=== PATIENT | female | born 1990 | race Caucasian/White ===

== ENCOUNTER 2017-11-22 14:48 | Observation (INO) ==
[2017-11-22 15:43] LABS: Basophils # 0.1 K/mcL (0.0-0.2); Basophils % 0.4 %; Eosinophils # 0.2 K/mcL (0.0-0.6); Eosinophils % 1.3 %; Hematocrit 36.1 % (35.3-44.9); Hemoglobin 12.3 g/dL (11.5-15.4); Immature Granulocytes % 0.4 % (0-4); Lymphocytes # 4.1 K/mcL (0.6-4.6); Lymphocytes % 29.2 %; Mean Corpuscular HGB Conc 34.1 g/dL (31.6-35.5); Mean Corpuscular Hemoglobin 29.9 pg (28.0-33.3); Mean Corpuscular Volume 87.6 fL (83.0-100.0); Mean Platelet Volume 9.5 fL (9.4-12.4); Monocytes # 0.6 K/mcL (0.0-1.3); Monocytes % 4.5 %; Neutrophils # 9.1 K/mcL (1.6-8.9); Platelet Count 408 K/mcL (140-400); Red Blood Count 4.12 M/mcL (3.82-4.97); Red Cell Distribution Width 12.9 % (11.5-14.5); Segmented Neutrophils % 64.2 %
[2017-11-22 15:53] LABS: Bilirubin,Urine Negative (Negative); Blood,Urine Negative (Negative); Clarity,Urine Cloudy (Clear); Color,Urine Yellow (Yellow); Glucose,Urine (UA) Normal (Normal); Ketones,Urine Negative (Negative); Leukocyte Esterase,Urine Negative (Negative); Nitrite,Urine Negative (Negative); PH,Urine 6.5 pH Units (5.0-8.0); Protein,Urine Negative (Neg-Trace); Specific Gravity,Urine 1.016 (1.010-1.025); Urobilinogen,Urine Normal (Normal)
[2017-11-22 15:56] LABS: Bacteria,Urine None Seen per hpf (None-Few); Hyaline Casts,Urine None Seen per lpf (None-Few); Squamous Epithelial Cell,Urine Many per lpf (None-Few); WBC,Urine 0-3 per hpf (0-3)
[2017-11-22] MEDS ORDERED: *HR* Morphine Immed Rel 30 MG TABLET PO ONE (19:33)
[2017-11-22] MEDS ORDERED: *HR* HYDROmorphone (PF) 1 MG/ML SYRINGE IVP PRN (21:06)
[2017-11-22] MEDS ORDERED: Ondansetron 4 MG/2 ML VIAL IVP PRN (21:06)
[2017-11-22] MEDS ORDERED: Naloxone 0.4 MG/ML INJ IVP PRN (21:06)
--- NOTE | 2017-11-22 21:26 | OB/GYN History & Physical ---
Date of Encounter: 11/22/17 Time of Encounter: 21:24 Assessment and Plan (1) of unknown anatomic location Current visit: Yes Status: Acute Discussion with patient regarding ultrasound findings and possibility of ectopic , spontaneous miscarriage (now bleeding), and early IUP. I have recommended observation with repeat labs in the morning and reevaluation of her pain prior to proceeding with medical or surgical management if it is deemed to be an ectopic . Patient is agreeable to repeat labs in te AM and is very interested in medical management if it is an ectopic. All questions answered for the patient and her family present. (2) LLQ pain Current visit: Yes Status: Acute History of Present Illness Chief complaint: LLQ pain in HPI: Ms. Shaw is a 26 year old female G 3 P 2-0-0-2 with LMP 10/18/2017 came to the ER after noticing a left lower quadrant discomfort. She states the pain began yesterday and became progressively worse at 10 am today. She states she started to bleed since her ultrasound and her pain is now improving. She states this is her third and everything feels very different. She is self pay and does not want any testing or treatment that is not absolutely necessary. Past Med Surg Social Fam HX - Past Medical History Source: patient Medical history: no medical history Psychiatric history: no psych history - Past Surgical History Surgical History: - Social History Smoking Status: Current every day smoker (3 cigarettes/day) Smokeless Tobacco Status: No Alcohol use: none Drug use: none Current living situation: Home - Independent Obstetrical History - Pregnancies : 3 Para: 2 Term: 2 : 0 Ab's: 0 Livin - History/Complications History/Complications: denies Medications and Allergies 3 Allergy/AdvReac Type Severity Reaction Status Date / Time No Known Allergies Allergy Verified 11/22/17 16:04 Review of System OB All systems PM: reviewed and no additional remarkable complaints except as stated - Constitutional Constitutional ROS IM: no anorexia, no chills, no fatigue, no fever(s) - Gastrointestinal Gastrointestinal: abdominal pain, no change in bowel habits, no constipation, no nausea, no vomiting - Genitourinary Genitourinary: abnormal vaginal bleeding, no vaginal dryness, no vaginal odor Exam - Vital Signs Vital signs: Initial Vital Signs Temp Pulse Resp BP Pulse Ox 98.6 F 87 18 100/69 98 11/22/17 14:50 11/22/17 14:50 11/22/17 14:50 11/22/17 14:50 11/22/17 14:50 - Constitutional Constitutional: well developed, well nourished, no acute distress, average body habitus - HEENT HEENT: EOMI - Lungs Respiratory exam: CTAB - Cardiovascular Cardiovascular exam: RRR - Abdomen Abdomen: Present: bowel sounds normal. Absent: guarding noted, mass Abdomen detail: left lower quadrant: tenderness (mild, without gurarding or rebound) - Extremities Extremities exam: warm Results Result Diagrams: 11/22/17 15:35 Abnormal lab results WBC 14.2 K/mcL (4.3-11.1) H 11/22/17 15:35 Plt Count 408 K/mcL (140-400) H 11/22/17 15:35 Neutrophils # 9.1 K/mcL (1.6-8.9) H 11/22/17 15:35 Beta HCG, Quant 3128 mIU/mL (Less than 5) H 11/22/17 15:35 Urine Clarity Cloudy (Clear) A 11/22/17 15:29 Urine Microscopic RBC 3-5 per hpf (0-3) H 11/22/17 15:29 Ur Squamous Epith Cells Many per lpf (None-Few) H 11/22/17 15:29 All other labs normal. US - abdomen: report reviewed (Images reviewed. Left adnexal cysts are without doppler flow and not convincing for ectopic . Possibly corpus luteum), image reviewed - VTE Reasons for not Prescribing Prophylaxis: Treatment not Indicated - Low risk for VTE
--- NOTE | 2017-11-22 22:08 | Emergency Department Note ---
Disposition Clinical Impression: Ectopic Qualifiers: Location of ectopic : tubal Intrauterine status: unspecified Laterality: unspecified laterality Qualified Code(s): O00.109 - Unspecified tubal without intrauterine Disposition: Admitted As Inpatient Condition: Good General Adult HPI - General Chief complaint: ED Abdominal Pain Stated complaint: Possible miscarriage 3Wks preg Time Seen by Provider: 11/22/17 15:13 Source: patient Limitations: no limitations Nursing Notes Reviewed: Yes Vital Signs Reviewed: Yes - History of Present Illness HPI Narrative: This is a 26-year-old female who was suspected to be 6 weeks presenting with acute onset of abdominal pain 4 hours ago. She called her friend who is a local marketing communications assistant who thought that potentially she had an ectopic and recommended that she come to the emergency department. Ultrasound was performed on arrival which showed possible ectopic . Her Quant was 3000. Type and screen as well as CBC were sent. Urinalysis was obtained. It was concerning that her pain was significant from any pain that she is experienced in the past. Ultimately OB was consult. They did recommend proceeding with admission for serial examinations, possibly repeat imaging, possible repeat laboratory analyses. The patient did express interest and medical management of possible ectopic however I did defer further actions to [facility] as they are the experts and management of possible ectopic . I do feel admission would be most appropriate at this point given the risk of rupture with ectopic . Her vital signs are stable time admission. Her pain was controlled. General: No acute distress HEENT: Pupils equal and reactive to light, extraoccular muscle movement is normal, TMS are clear bilaterally. Heart: RRR, No murmor rub or gallop Lungs: lungs clear, no wheezing, rales or ronchi. ABD: General tenderness without peritonitis Extremities: No cyanosis, clubbing or edema Neuro: CN 2-12 in tact, no focal deficit. strength 5/5. Pain Scale: 4 - Related Data Allergies Allergy/AdvReac Type Severity Reaction Status Date / Time No Known Allergies Allergy Verified 11/22/17 16:04 All systems ED: reviewed and negative except as stated. Review of Systems: As Per HPI Past Medical History - Past Medical History Medical history: Reports: no medical history Surgical history: Reports: Psychiatric history: Reports: no psych history - Social History Smoking Status: Current every day smoker (3 cigarettes/day) Smokeless Tobacco Status: No Alcohol use: Reports: none Drug use: Reports: none Physical Exam - General Limitations: no limitations General appearance: alert, in no apparent distress Course Vital Signs Temperature 98.6 F 11/22/17 14:50 Pulse Rate 87 11/22/17 14:50 Respiratory Rate 18 11/22/17 14:50 Blood Pressure 100/69 11/22/17 14:50 O2 Sat by Pulse Oximetry 98 11/22/17 14:50 Temperature 98 F 11/22/17 21:10 Pulse Rate 78 11/22/17 21:10 Respiratory Rate 20 11/22/17 21:10 Blood Pressure 105/70 11/22/17 21:10 O2 Sat by Pulse Oximetry 100 11/22/17 21:10 Oxygen Delivery Oxygen Delivery Room Air Medical Decision Making - Lab Data Result diagrams: 11/22/17 15:35 Lab Results 11/22/17 11/22/17 11/22/17 Range/Units 15:29 15:35 15:35 WBC 14.2 H (4.3-11.1) K/mcL RBC 4.12 (3.82-4.97) M/mcL Hgb 12.3 (11.5-15.4) g/dL Hct 36.1 (35.3-44.9) % MCV 87.6 (83.0-100.0) fL MCH 29.9 (28.0-33.3) pg MCHC 34.1 (31.6-35.5) g/dL RDW 12.9 (11.5-14.5) % Plt Count 408 H (140-400) K/mcL MPV 9.5 (9.4-12.4) fL Immature Gran % 0.4 (0-4) % Seg Neutrophils % 64.2 % Lymphocytes % 29.2 % Monocytes % 4.5 % Eosinophils % 1.3 % Basophils % 0.4 % Neutrophils # 9.1 H (1.6-8.9) K/mcL Lymphocytes # 4.1 (0.6-4.6) K/mcL Monocytes # 0.6 (0.0-1.3) K/mcL Eosinophils # 0.2 (0.0-0.6) K/mcL Basophils # 0.1 (0.0-0.2) K/mcL Beta HCG, Quant 3128 H (Less than 5) mIU/mL Urine Color Yellow (Yellow) Urine Clarity Cloudy A (Clear) Urine pH 6.5 (5.0-8.0) pH Units Ur Specific [place] 1.016 (1.010-1.025) Urine Protein Negative (Neg-Trace) mg/dL Urine Glucose (UA) Normal (Normal) mg/dL Urine Ketones Negative (Negative) mg/dL Urine Blood Negative (Negative) Urine Nitrite Negative (Negative) Urine Bilirubin Negative (Negative) Urine Urobilinogen Normal (Normal) mg/dL Ur Leukocyte Esterase Negative (Negative) Urine Microscopic RBC 3-5 H (0-3) per hpf Urine Microscopic WBC 0-3 (0-3) per hpf Ur Squamous Epith Cells Many H (None-Few) per lpf Urine Bacteria None Seen (None-Few) per hpf Hyaline Casts None Seen (None-Few) per lpf Ur Culture Indicated? NO (NO) Blood Type Antibody Screen 11/22/17 Range/Units 15:35 WBC (4.3-11.1) K/mcL RBC (3.82-4.97) M/mcL Hgb (11.5-15.4) g/dL Hct (35.3-44.9) % MCV (83.0-100.0) fL MCH (28.0-33.3) pg MCHC (31.6-35.5) g/dL RDW (11.5-14.5) % Plt Count (140-400) K/mcL MPV (9.4-12.4) fL Immature Gran % (0-4) % Seg Neutrophils % % Lymphocytes % % Monocytes % % Eosinophils % % Basophils % % Neutrophils # (1.6-8.9) K/mcL Lymphocytes # (0.6-4.6) K/mcL Monocytes # (0.0-1.3) K/mcL Eosinophils # (0.0-0.6) K/mcL Basophils # (0.0-0.2) K/mcL Beta HCG, Quant (Less than 5) mIU/mL Urine Color (Yellow) Urine Clarity (Clear) Urine pH (5.0-8.0) pH Units Ur Specific [place] (1.010-1.025) Urine Protein (Neg-Trace) mg/dL Urine Glucose (UA) (Normal) mg/dL Urine Ketones (Negative) mg/dL Urine Blood (Negative) Urine Nitrite (Negative) Urine Bilirubin (Negative) Urine Urobilinogen (Normal) mg/dL Ur Leukocyte Esterase (Negative) Urine Microscopic RBC (0-3) per hpf Urine Microscopic WBC (0-3) per hpf Ur Squamous Epith Cells (None-Few) per lpf Urine Bacteria (None-Few) per hpf Hyaline Casts (None-Few) per lpf Ur Culture Indicated? (NO) Blood Type A POSITIVE Antibody Screen NEGATIVE
[2017-11-22] MEDS: Ringers Solution, Lactated 1,000 ML IVC SCH (22:54)
[2017-11-23 05:01] LABS: Alanine Aminotransferase 7 Units/L (7-52); Albumin 3.5 g/dL (3.5-5.7); Albumin/Globulin Ratio 1.5 (1.1-2.2); Alkaline Phosphatase 35 Units/L (34-104); Aspartate Amino Transferase 12 Units/L (13-39); BUN/Creatinine Ratio 14 (6-26); Bilirubin,Total 0.2 mg/dL (0.3-1.0); Blood Urea Nitrogen 8 mg/dL (6-20); Calcium 8.6 mg/dL (8.6-10.3); Carbon Dioxide 24 mEq/L (23-29); Chloride 113 mEq/L (98-107); Globulin 2.3 g/dL (2.4-3.5); Glucose 114 mg/dL (70-105); Osmolality,Calculated 289 (280-300); Potassium 3.8 mEq/L (3.5-5.1); Sodium 140 mEq/L (136-145); Total Protein 5.8 g/dL (6.4-8.9); eGFR For African Americans > 60 (> 60); eGFR For Non-African Americans > 60 (> 60)
[2017-11-23] MEDS: Ringers Solution, Lactated 1,000 ML IVC SCH (09:15)
--- NOTE | 2017-11-23 09:37 | OB/GYN Progress Note ---
Date of Encounter: 11/23/17 Time of Encounter: 09:30 - Assessment and Plan (1) Ectopic Current Visit: Yes Status: Acute Because of worsening pain and been symptomatic patient be scheduled for a laparoscopy salpingostomy possible salpingectomy possible salpingo-oophorectomy on the left side Qualifiers: Location of ectopic : tubal Intrauterine status: unspecified Laterality: left Qualified Code(s): O00.102 - Left tubal without intrauterine (2) LLQ pain Current Visit: Yes Status: Acute Subjective - Subjective Interval history: Patient states she started have pain in the left lower quadrant and she is complaining of some lightheadedness and dizziness. Patient states she had pain when she was in emergency room that resolved been approximately 5:00 started getting more uncomfortable again. Her quantitative hCG has dropped from 3000 down to 1600 but I am concerned about the ultrasound showing a complex mass in the left adnexa and what appears to be complex fluid suggestive of blood. Because she is having worsening pain and she is feeling symptomatic have recommended laparoscopy. Objective - Vital Signs Latest vital signs: Vital Signs Temp Pulse Resp BP Pulse Ox 11/23/17 07:30 98.1 F 68 16 86/52 11/23/17 04:25 98.6 F 74 14 87/52 100 11/23/17 00:45 98.3 F 76 14 104/55 98 11/22/17 21:10 98 F 78 20 105/70 100 11/22/17 20:28 14 115/74 Intake and Output 11/22/17 11/23/17 11/23/17 23:59 07:59 15:59 Other: Weight 70.7 kg 71.9 kg Patient Weight 11/23/17 23:59 Weight 71.9 kg - I&O's I&O's: Intake & Output 11/20/17 11/21/17 11/22/17 11/23/17 23:59 23:59 23:59 23:59 Weight 70.7 kg 71.9 kg - Exam Lungs: bilateral: normal Chest: Normal S1, Normal S2 Extremities: Present: normal Abdomen: Present: normal appearance, tenderness (Left lower quadrant) - Labs Labs: Abnormal lab results WBC 14.2 K/mcL (4.3-11.1) H 11/22/17 15:35 Plt Count 408 K/mcL (140-400) H 11/22/17 15:35 Neutrophils # 9.1 K/mcL (1.6-8.9) H 11/22/17 15:35 Chloride 113 mEq/L (98-107) H 11/23/17 04:26 Creatinine 0.57 mg/dL (0.60-1.20) L 11/23/17 04:26 Glucose 114 mg/dL (70-105) H 11/23/17 04:26 Total Bilirubin 0.2 mg/dL (0.3-1.0) L 11/23/17 04:26 AST 12 Units/L (13-39) L 11/23/17 04:26 Serum Total Protein 5.8 g/dL (6.4-8.9) L 11/23/17 04:26 Globulin 2.3 g/dL (2.4-3.5) L 11/23/17 04:26 Beta HCG, Quant 1637 mIU/mL (Less than 5) H 11/23/17 04:26 Urine Clarity Cloudy (Clear) A 11/22/17 15:29 Urine Microscopic RBC 3-5 per hpf (0-3) H 11/22/17 15:29 Ur Squamous Epith Cells Many per lpf (None-Few) H 11/22/17 15:29 Consult Discharge Plan - Plan Referrals: NONE,PCP [Primary Care Provider] -
[2017-11-23 10:09] LABS: Hematocrit 33.9 % (35.3-44.9); Hemoglobin 11.4 g/dL (11.5-15.4); Immature Granulocytes % 0.1 % (0-4); Mean Corpuscular HGB Conc 33.6 g/dL (31.6-35.5); Mean Corpuscular Hemoglobin 29.4 pg (28.0-33.3); Mean Corpuscular Volume 87.4 fL (83.0-100.0); Mean Platelet Volume 9.7 fL (9.4-12.4); Neutrophils # 4.3 K/mcL (1.6-8.9); Platelet Count 347 K/mcL (140-400); Red Blood Count 3.88 M/mcL (3.82-4.97); Red Cell Distribution Width 13.1 % (11.5-14.5); Segmented Neutrophils % 47.7 %
[2017-11-23 10:10] LABS: Basophils % 0.4 %; Eosinophils # 0.2 K/mcL (0.0-0.6); Eosinophils % 2.1 %; Lymphocytes # 3.9 K/mcL (0.6-4.6); Lymphocytes % 43.1 %; Monocytes # 0.6 K/mcL (0.0-1.3); Monocytes % 6.6 %
[2017-11-23] MEDS ORDERED: *HR* Midazolam HCl 2 MG/2 ML VIAL ONE (12:05)
[2017-11-23] MEDS ORDERED: *HR* FentaNYL (PF) 100 MCG/2 ML VIAL ONE (12:05)
[2017-11-23] MEDS ORDERED: *HR* Succinylcholine 200 MG/10 ML VIAL IVP ONE (12:06)
[2017-11-23] MEDS ORDERED: Scopolamine Patch 1.5 MG PATCH.TD72 ONE (12:53)
[2017-11-23] MEDS ORDERED: *HR* HYDROmorphone (PF) 1 MG/ML SYRINGE IVP PRN (12:59)
[2017-11-23] MEDS ORDERED: *HR* Promethazine 25 MG/ML VIAL IVP PRN (12:59)
--- NOTE | 2017-11-23 12:59 | Anesthesia Evaluation PreOp ---
Date of Encounter: 11/23/17 Time of Encounter: 12:57 - Past History Planned Operation: resection ectopic Cardiac History: Denies any Significant Hx Pulmonary History: Smoker (occassional) [employer] History: Denies Any Significant HX Other Medical History: Denies Any Significant HX Anesthesia History: No Prior Anesthetic Complications (none with spinal; mother gets nauseated with general), Past Anesthesia (C-S under spinal) Alcohol Use: none Drug use: none Medications and Allergies 3 Allergy/AdvReac Type Severity Reaction Status Date / Time No Known Allergies Allergy Verified 11/22/17 16:04 - Meds/Allergy Pre-op Review Medications Reviewed: Yes Allergies Reviewed: Yes Beta Blockers on Current Med List: No Anesthesia Results - Labs 11/23/17 08:51 11/23/17 04:26 Anesthesia Exam Last Vital Signs Temp 98.3 F 11/23/17 12:10 Pulse 64 11/23/17 12:10 Resp 16 11/23/17 12:10 BP 93/60 11/23/17 12:10 Pulse Ox 100 11/23/17 12:10 Weight: 72 kg NPO (# of Hours): > 8 hrs - HEENT Pupil (Motor): Pupils equal, EOMI Mallampati: II Teeth: Normal, Prosthesis (permanent retainer) Oral Opening: Greater than 3 - [employer] LOC: Oriented [employer] Motor: Normal RUE, Normal LUE, Normal RLE, Normal LLE, Normal Face - Cardiac Rhythm: Regular Murmur: None - Pulmonary Breath Sounds: bilateral Clear Respiratory Effort: Symmetrical Anesthesia Assess/Plan ASA Score: 2 Modified Joshua Scale for Level of Consciousness: Cooperative, oriented, and tranquil Anesthetic Plan: General Monitoring Plan: Standard Monitors Recovery Plan: PACU
[2017-11-23] MEDS ORDERED: Bupivacaine-MPF 0.25% 10 ML VIAL ONE (13:05)
[2017-11-23] MEDS ORDERED: Dexamethasone 4 MG/ML VIAL ONE (13:26)
[2017-11-23] MEDS ORDERED: Ondansetron 4 MG/2 ML VIAL ONE (13:26)
[2017-11-23] MEDS ORDERED: *HR* Rocuronium Bromide 50 MG/5 ML VIAL ONE (13:26)
[2017-11-23] MEDS ORDERED: Neostigmine Methylsulfate 3 MG/3 ML SYRINGE ONE (13:39)
[2017-11-23] MEDS ORDERED: Ketorolac 30 MG/ML VIAL ONE (13:39)
--- NOTE | 2017-11-23 14:07 | Operative Note ---
Date of procedure: 11/23/17 Pre-op diagnosis: ruptured left ectopic Post-op diagnosis: same Procedure: Laparoscopic left salpingectomy Complications: none Anesthesia: ALYSHAA Surgeon: Heath Herzog Estimated blood loss (cc): 50 Specimen: left fellopian tube with ectopic Condition: stable Disposition: PACU Procedure in Detail: Patient is a 26-year-old female who presented to the emergency room complaining of lower quadrant pain. She had an ultrasound which showed what appeared to be a complex mass in the left adnexa but a quantitative hCG was only 3000. The patient was having pain when she got to the emergency room but ultrasound was not definitive of an ectopic and is aside we will go ahead and watch the patient overnight and repeat a quantitative hCG in the morning. When patient arrived to the floor her pain had resolved she was feeling better. Her quantitative hCG had dropped to 1600 this morning the patient was stating that she was beginning to develop left lower quadrant pain again and she was feeling symptomatic she stated she was feeling lightheaded and dizzy especially when she sat up. Because ultrasound did show what looked like some complex fluid around the adnexa suggestive of blood I recommended a laparoscopy. Procedure: Patient was taken to the operating room where general anesthesia was found to be adequate. She was placed in the dorsal lithotomy position prepped and draped in usual fashion. Timeout was obtained. A weighted speculum was placed in the vagina the anterior lip of the cervix was grasped with a single- tooth tenaculum and a uterine manipulator was inserted. Speculum was removed attention was then turned to the abdomen. A small infraumbilical incision was made with a scalpel and a 5 mm blunt trocar was inserted under direct visualization. It was noted as we entered the abdominal cavity there was blood in the abdomen. A pneumoperitoneum was obtained with 4 L of CO2 gas. There is no adhesions to the abdominal wall a second incision was made in the left flank and a 5 mm blunt trocar was inserted under direct visualization and a third incision was made suprapubically and a 12 mm incision and trocar was inserted. The pelvis was visualized she was noted to have blood in the posterior cul-de- sac and she did have what appeared to be an ectopic of the left fallopian tube. It appeared to involve the entire tube and it look like she is bleeding from the fimbriated end. It did not appear that a salpingostomy would benefit her was to set this time a salpingectomy would be needed. Using the LigaSure the fallopian tube was then transected off the ovary to the mesosalpinx then at the uterine side using the LigaSure. The specimen was then placed into an Endopouch and brought out through the suprapubic incision. The pelvis was copiously irrigated no active bleeding was noted. It was at this point we terminate the procedure both ovaries were normal the right fallopian tube was also normal. The laparoscope was removed and pneumoperitoneum released call by the removal of the trochars. The skin incisions were closed using a 4-0 Vicryl in subcuticular manner and a deep stitch on the fascia suprapubically was also placed. Instruments were removed from the vagina and the patient was taken to recovery room in stable condition. Patient did receive preoperative antibiotics.
--- NOTE | 2017-11-23 14:42 | Discharge Summary ---
Date of Encounter: 11/23/17 Time of Encounter: 15:40 - Discharge Diagnosis (1) Ectopic Priority: Secondary Status: Acute Qualifiers: Location of ectopic : tubal Intrauterine status: unspecified Laterality: left Qualified Code(s): O00.102 - Left tubal without intrauterine (2) LLQ pain Priority: Secondary Status: Acute (3) Hx of unilateral salpingectomy Priority: Primary Status: Acute - Discharge Medications Prescriptions: HYDROcodone/Acet 5/325 mg [[place] 5-325 mg] 1 tab PO Q6H #28 tablet Home Medications: HYDROcodone/Acet 5/325 mg [[place] 5-325 mg] 1 tab PO Q6H #28 tablet 11/23/17 [Rx] Allergies/Adverse Reactions: 3 Allergy/AdvReac Type Severity Reaction Status Date / Time No Known Allergies Allergy Verified 11/22/17 16:04 Data Procedures and tests throughout hospitalization: Laboratory Tests 11/23/17 11/23/17 11/23/17 04:26 08:51 08:51 WBC 9.1 RBC 3.88 Hgb 11.4 L Hct 33.9 L MCV 87.4 MCH 29.4 MCHC 33.6 RDW 13.1 Plt Count 347 MPV 9.7 Immature Gran % 0.1 Seg Neutrophils % 47.7 Lymphocytes % 43.1 Monocytes % 6.6 Eosinophils % 2.1 Basophils % 0.4 Neutrophils # 4.3 Lymphocytes # 3.9 Monocytes # 0.6 Eosinophils # 0.2 Basophils # 0.0 Sodium 140 Potassium 3.8 Chloride 113 H Carbon Dioxide 24 BUN 8 Creatinine 0.57 L Est GFR ( Amer) > 60 Est GFR (Non-Af Amer) > 60 BUN/Creatinine Ratio 14 Glucose 114 H Calculated Osmolality 289 Calcium 8.6 Total Bilirubin 0.2 L AST 12 L ALT 7 Alkaline Phosphatase 35 Serum Total Protein 5.8 L Albumin 3.5 Globulin 2.3 L Albumin/Globulin Ratio 1.5 Beta HCG, Quant 1637 H Blood Type A POSITIVE Antibody Screen NEGATIVE Labs on day of discharge: Labs from last 24 hours 11/23/17 11/23/17 11/23/17 08:51 08:51 04:26 WBC 9.1 RBC 3.88 Hgb 11.4 L Hct 33.9 L MCV 87.4 MCH 29.4 MCHC 33.6 RDW 13.1 Plt Count 347 MPV 9.7 Immature Gran % 0.1 Seg Neutrophils % 47.7 Lymphocytes % 43.1 Monocytes % 6.6 Eosinophils % 2.1 Basophils % 0.4 Neutrophils # 4.3 Lymphocytes # 3.9 Monocytes # 0.6 Eosinophils # 0.2 Basophils # 0.0 Sodium 140 Potassium 3.8 Chloride 113 H Carbon Dioxide 24 BUN 8 Creatinine 0.57 L Est GFR ( Amer) > 60 Est GFR (Non-Af Amer) > 60 BUN/Creatinine Ratio 14 Glucose 114 H Calculated Osmolality 289 Calcium 8.6 Total Bilirubin 0.2 L AST 12 L ALT 7 Alkaline Phosphatase 35 Serum Total Protein 5.8 L Albumin 3.5 Globulin 2.3 L Albumin/Globulin Ratio 1.5 Beta HCG, Quant 1637 H Blood Type A POSITIVE Antibody Screen NEGATIVE Date of admission: 11/22/17 19:59 Primary care physician: PCP JAKE Discharging clinician: Heath Herzog Anticipated date of discharge: 11/23/17 - Patient Status Disposition: Home, Self-Care Condition: Good Functional capacity at discharge: independent ambulation Overall status at discharge: patient is progressing back to baseline - Discharge Instructions Follow Up With: NONE,PCP [Primary Care Provider] - Heath Herzog DO [Partnered Physician] - Forms: ED Satisfaction Letter, Work/School Release - Diet and Activity Activity: increase activity as tolerated Diet: advance to your usual diet 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 She was noted be with a quantitative hCG of 3000 ultrasound showed a possible ectopic with free fluid the patient's ultrasound was not definitive for this. Patient was not in a lot of distress and was admitted overnight to repeat a quantitative hCG in the morning. Her quantitative hCG had dropped down to 1600. Patient's pain had disappeared but it started to come back and she started becoming symptomatic. It was recommended we take to the operating room for laparoscopy. She did undergo a diagnostic laparoscopy with was noted she did have blood in the pelvis and what appeared to be an ectopic on the left side. We performed a left salpingectomy without any complications. Patient did well she recovered and wanted to go home she was discharged home with a prescription for Vicodin 5 mg # 28 one every 6 hours as needed for pain she will follow-up in the office in 2-3 weeks. Patient's condition at the time of discharge was stable. Time Attestation: Total time spent providing and/or coordinating discharge services: Exam - Constitutional Vitals: Temp Pulse Resp BP Pulse Ox 97.7 F 64 16 94/59 98 11/23/17 14:33 11/23/17 14:33 11/23/17 14:33 11/23/17 14:33 11/23/17 14:33 General appearance IM: mild distress, A&O X 3 - Respiratory Respiratory exam: Present: CTAB - Cardiovascular Cardiovascular exam IM: Present: RRR - GI/Abdominal GI/Abdominal exam IM: normal bowel sounds Incision: normal, dry, intact - VTE Reasons for not Prescribing Prophylaxis: Treatment not Indicated - Low risk for VTE
[2017-11-23] MEDS ORDERED: Ondansetron 4 MG/2 ML VIAL IVP PRN (14:54)
[2017-11-23] MEDS ORDERED: *HR* HYDROcodone/Acet 10/325 mg TABLET PO PRN (14:54)
[2017-11-23] MEDS ORDERED: Ringers Solution, Lactated 1,000 ML IVC SCH (14:54)
[2017-11-23] MEDS ORDERED: *HR* HYDROcodone/Acet 5/325 mg TABLET PO PRN (14:54)
== END 2017-11-23 18:00 | disposition home or self-care (01) ==
LOC: EMEROO 14:48 → 1NENUOBS 14:48
PROVIDERS: ADMIT Obstetrics & Gynecology; ATTEND Obstetrics & Gynecology

== ENCOUNTER 2019-12-05 17:54 | Observation (INO) ==
[2019-12-05] MEDS ORDERED: 0.9 % Sodium Chloride 1,000 ML IVC ONE (18:27)
[2019-12-05 19:46] LABS: Bilirubin,Urine Negative (Negative); Blood,Urine Negative (Negative); Clarity,Urine Clear (Clear); Color,Urine Yellow (Yellow); Glucose,Urine (UA) Normal (Normal); Ketones,Urine Negative (Negative); Leukocyte Esterase,Urine Small (Negative); Nitrite,Urine Negative (Negative); Protein,Urine Negative (Neg-Trace); Specific Gravity,Urine 1.013 (1.010-1.025); Urobilinogen,Urine Normal (Normal)
[2019-12-05 19:47] LABS: Bacteria,Urine None Seen per hpf (None-Few); Hyaline Casts,Urine None Seen per lpf (None-Few); RBC,Urine 0-3 per hpf (0-3); Squamous Epithelial Cell,Urine Many per lpf (None-Few)
[2019-12-05 19:54] LABS: Basophils % 0.2 %; Eosinophils # 0.1 K/mcL (0.0-0.6); Eosinophils % 0.9 %; Hematocrit 38.8 % (35.3-44.9); Hemoglobin 12.8 g/dL (11.5-15.4); Immature Granulocytes % 0.3 % (0-4); Lymphocytes # 3.5 K/mcL (0.6-4.6); Lymphocytes % 27.6 %; Mean Corpuscular Hemoglobin 29.4 pg (28.0-33.3); Mean Platelet Volume 9.5 fL (9.4-12.4); Monocytes # 0.7 K/mcL (0.0-1.3); Monocytes % 5.2 %; Neutrophils # 8.3 K/mcL (1.6-8.9); Platelet Count 406 K/mcL (140-400); Red Blood Count 4.36 M/mcL (3.82-4.97); Red Cell Distribution Width 11.8 % (11.5-14.5); Segmented Neutrophils % 65.8 %; White Blood Count 12.6 K/mcL (4.3-11.1)
[2019-12-05 20:16] LABS: Alanine Aminotransferase 6 Units/L (7-52); Albumin 4.1 g/dL (3.5-5.7); Albumin/Globulin Ratio 1.4 (1.1-2.2); Alkaline Phosphatase 41 Units/L (34-104); Aspartate Amino Transferase 13 Units/L (13-39); BUN/Creatinine Ratio 24 (6-26); Bilirubin,Total 0.2 mg/dL (0.3-1.0); Blood Urea Nitrogen 11 mg/dL (6-20); Calcium 9.2 mg/dL (8.6-10.3); Carbon Dioxide 19 mEq/L (23-29); Chloride 108 mEq/L (98-107); Globulin 2.9 g/dL (2.4-3.5); Glucose 102 mg/dL (70-105); Lipase 12 Units/L (11-82); Osmolality,Calculated 288 (280-300); Potassium 3.9 mEq/L (3.5-5.1); Sodium 139 mEq/L (136-145); eGFR For African Americans > 60 (> 60); eGFR For Non-African Americans > 60 (> 60)
[2019-12-05] MEDS ORDERED: Hydrocortisone Sodium Succ 100 MG/2 ML VIAL IVP ONE (21:17)
[2019-12-05 21:44] LABS: Thyroid Stimulating Hormone 0.024 mcIU/mL (0.340-5.600)
[2019-12-05] MEDS ORDERED: Ondansetron 4 MG/2 ML VIAL IVP PRN (22:57)
[2019-12-05] MEDS ORDERED: Naloxone 0.4 MG/ML INJ IVP PRN (22:57)
[2019-12-05] MEDS ORDERED: 0.9 % Sodium Chloride 1,000 ML IVC SCH (23:00)
[2019-12-06] MEDS ORDERED: Ondansetron ODT 4 MG TAB.RAPDIS PO PRN (01:15)
[2019-12-06 07:20] VITALS: BP 93/61
[2019-12-06 08:35] LABS: Basophils % 0.4 %; Eosinophils # 0.2 K/mcL (0.0-0.6); Eosinophils % 1.6 %; Hematocrit 36.9 % (35.3-44.9); Hemoglobin 12.4 g/dL (11.5-15.4); Immature Granulocytes % 0.3 % (0-4); Lymphocytes # 3.7 K/mcL (0.6-4.6); Lymphocytes % 33.7 %; Mean Corpuscular HGB Conc 33.6 g/dL (31.6-35.5); Mean Corpuscular Hemoglobin 29.4 pg (28.0-33.3); Mean Corpuscular Volume 87.4 fL (83.0-100.0); Mean Platelet Volume 9.3 fL (9.4-12.4); Monocytes # 0.6 K/mcL (0.0-1.3); Monocytes % 5.6 %; Neutrophils # 6.5 K/mcL (1.6-8.9); Platelet Count 388 K/mcL (140-400); Red Blood Count 4.22 M/mcL (3.82-4.97); Red Cell Distribution Width 11.9 % (11.5-14.5); Segmented Neutrophils % 58.4 %; White Blood Count 11.1 K/mcL (4.3-11.1)
[2019-12-06 08:54] LABS: Alanine Aminotransferase 6 Units/L (7-52); Albumin 3.8 g/dL (3.5-5.7); Albumin/Globulin Ratio 1.2 (1.1-2.2); Alkaline Phosphatase 39 Units/L (34-104); Aspartate Amino Transferase 13 Units/L (13-39); BUN/Creatinine Ratio 18 (6-26); Bilirubin,Total 0.3 mg/dL (0.3-1.0); Blood Urea Nitrogen 10 mg/dL (6-20); Calcium 9.1 mg/dL (8.6-10.3); Carbon Dioxide 23 mEq/L (23-29); Chloride 108 mEq/L (98-107); Globulin 3.1 g/dL (2.4-3.5); Glucose 90 mg/dL (70-105); Osmolality,Calculated 285 (280-300); Sodium 138 mEq/L (136-145); Total Protein 6.9 g/dL (6.4-8.9); eGFR For African Americans > 60 (> 60); eGFR For Non-African Americans > 60 (> 60)
[2019-12-06] MEDS ORDERED: Multivit/Ca/Min/Fe/FA 1 TAB TABLET PO SCH (09:00)
[2019-12-06] MEDS ORDERED: Loratadine 10 MG TABLET PO SCH (09:00)
[2019-12-06] MEDS ORDERED: Hydrocortisone 10 MG TABLET PO SCH (09:00)
[2019-12-06] MEDS ORDERED: NON-FORMULARY MEDICATION 1 EACH EACH PO SCH (09:00)
== END 2019-12-06 12:30 | disposition home or self-care (01) ==
LOC: EMEROOARM 17:54 → 3BNU 17:54 → SUATTDRO 22:06 → 3BNU 23:02
PROVIDERS: ADMIT Student in an Organized Health Care Education/Training Program; ATTEND Internal Medicine